=== PATIENT | male | born 1985 | race Caucasian/White ===

== ENCOUNTER 2016-03-15 15:08 | Emergency (ER) | payer BC ==
[2016-03-15 15:52] VITALS: BP 130/81
--- NOTE | 2016-03-15 16:14 | UC ---
Back Pain HPI - HPI Summary HPI Summary: Patient slipped and fell on his steps last week Monday and hit his lower cervical spine on a step. Patient states that his pain fully resolved two days ago, but was re-aggravated when he worked yesterday. Pain present only with shoulder and neck movement. Patient works for [employer] and is doing repeated heavy lifting. - History of Current Complaint Chief Complaint: UCUpperExtremity Stated Complaint: NECK AND SHOULDER PAIN Time Seen by Provider: 03/15/16 16:09 Hx Obtained From: Patient Onset/Duration: Sudden Onset, Worse Since - Working yesterday Timing: Intermittent - With neck and shoulder movements Severity Initially: Moderate Severity Currently: Moderate Back Pain: Radiates To - Bilateral scapula Character: Dull, Aching Aggravating: Movement, Lifting Alleviating: Rest Associated Signs And Symptoms: Positive: Negative - Risk Factors AAA Risk Factors: Negative TAD Risk Factors: Negative Cauda Equina Risk Factors: Negative Epidural Abscess Risk Factors: Negative - Allergies/Home Medications Allergies/Adverse Reactions: Allergies Allergy/AdvReac Type Severity Reaction Status Date / Time Penicillins Allergy Hives Uncoded 01/20/15 11:57 Home Medications: Home Medications Ibuprofen [Advil] 400 mg PO 03/15/16 [History] PMH/Surg Hx/FS Hx/Imm Hx Previously Healthy: Yes Endocrine History Of: Denies: Diabetes, Thyroid Disease, Hyperthyroidism, Hypothyroidism, Dyslipidemia Cardiovascular History Of: Denies: Cardiac Disorders, Hypertension, Pacemaker/ICD, Myocardial Infarction , Congestive Heart Failure, Atrial Fibrillation, Deep Vein Thrombosis, Bleeding Disorders Respiratory History Of: Reports: Asthma - as a child GI/ History Of: Denies: Gastroesophageal Reflux, Ulcer, Gastrointestinal Bleed, Gall Bladder Disease, Kidney Stones, Diverticulitis, Renal Disease, Urosepsis Neurological History Of: Denies: Seizures, Migraine Psychological History Of: Denies: Anxiety, Depression Cancer History Of: Denies: Lung Cancer - Surgical History Surgical History: None - Family History Known Family History: Positive: Unknown - Social History Occupation: Employed Full-time - [employer]: With Family Alcohol Use: Daily Alcohol Amount: a couple beers Substance Use Type: None, Marijuana Substance Use Comment - Amount & Last Used: on occasion Smoking Status (MU): Heavy Every Day Tobacco Smoker Type: Cigarettes Have You Smoked in the Last Year: Yes When Did the Patient Quit Smoking/Using Tobacco: Sep 2014 Review of Systems Constitutional: Negative Skin: Negative Eyes: Negative ENT: Negative Respiratory: Negative Cardiovascular: Negative Gastrointestinal: Negative Genitourinary: Negative Musculoskeletal: Other: - Neck and shoulder pain Neurological: Negative Psychological: Negative All Other Systems Reviewed And Are Negative: Yes Physical Exam Triage Information Reviewed: Yes Appearance: Well-Appearing, No Pain Distress, Well-Nourished Vital Signs: Initial Vital Signs Temp 99.0 F 03/15/16 15:47 Pulse 72 03/15/16 15:47 Resp 18 03/15/16 15:47 BP 130/81 03/15/16 15:47 Pulse Ox 99 03/15/16 15:47 Vital Signs Reviewed: Yes Eye Exam: Normal Eyes: Positive: Conjunctiva Clear ENT Exam: Normal Dental Exam: Normal Neck: Positive: Supple, Nontender, No Lymphadenopathy Respiratory: Positive: Chest non-tender, Lungs clear, Normal breath sounds Cardiovascular: Positive: RRR, No Murmur, Pulses Normal Abdomen Description: Positive: Nontender, No Organomegaly, Soft Bowel Sounds: Positive: Present Musculoskeletal: Positive: Strength Intact, ROM Intact - ROM intact but movement aggravate plain Neurological Exam: Normal Neurological: Positive: Alert Psychological Exam: Normal Psychological: Positive: Normal Response To Family Skin Exam: Normal Back Pain Course/Dx - Differential Dx/Diagnosis Provider Diagnoses: Acute cervical strain Discharge - Discharge Plan Condition: Stable Disposition: HOME Patient Education Materials: Cervical Strain (ED) Referrals: No Primary Care Phys,NOPCP [Primary Care Provider] - If Needed Additional Instructions: ANTI-INFLAMMATORY MEDICATION: You have received a prescription for an antiinflammatory agent. This is an excellent drug for pain control. In addition, it has potent antiinflammatory effects which are beneficial, especially in the treatment of injuries, arthritis , or tendonitis. It's best to take this medicine with food. Persons with ulcer disease or allergy to aspirin should notify their physician of this before taking this drug. Take the medication exactly as prescribed. Don't take additional doses unless instructed to do so by your doctor. If you develop wheezing, shortness of breath, hives, faintness, stomach pain, vomiting, or dark black stools, return for re-evaluation at once. MUSCLE RELAXERS: Muscle relaxing medications are usually prescribed for acute muscle spasm or injury to the neck and back. They are often combined with antiinflammatory pain medication for increased relief. You may stop the muscle relaxer when the pain and stiffness have improved. Start the medication again if spasms recur. Muscle relaxers may cause drowsiness, especially with the first dose. Do not operate machinery or drive while under the effects of the medication. Do not combine the medication with alcohol. TRY TO USE THIS PRIMARILY AT BEDTIME DUE TO SEDATING EFFECTS. YOU CAN USE ONE PILL (A HALF-DOSE) OR TWO (A FULL DOSE) IN ORDER TO BALANCE THE BENEFITS AND SIDE-EFFECTS. (1) Rest on a firm surface. Avoid lying on your stomach. (2) Ice pack the painful area. After a few days, gentle heat may be used intermittently to relax the area, or ice packs can be continued. (3) Medication may be needed -- muscle relaxers and antiinflammatory medicines are commonly used. (4) As the back improves, exercises are prescribed to strengthen the back and abdominal muscles. Your doctor will advise you on the proper care for your back at each stage in your recovery. You may be better in a few days -- or healing may take several weeks.
--- NOTE | 2016-03-15 17:02 | RAD ---
INDICATION: Neck pain COMPARISON: None TECHNIQUE: Routine five-view imaging was performed FINDINGS: Bones: There are no acute bony findings. There are no significant osteoarthritic findings. Craniocervical junction: The odontoid and atlantodental interval are normal. Alignment: Cervical spine straightening Disc spaces: The disc spaces are well-maintained Soft tissues: The prevertebral soft tissues are normal. IMPRESSION: CERVICAL SPINE STRAIGHTENING, OTHERWISE NEGATIVE.
== END 2016-03-15 17:20 | disposition home or self-care (01) ==
LOC: UCEAST 15:08
DX: S16.1XXS Strain of muscle, fascia and tendon at neck level, sequela (principal); X50.0XXS Overexertion from strenuous movement or load, sequela; F12.90 Cannabis use, unspecified, uncomplicated; Z87.891 Personal history of nicotine dependence
CPT/HCPCS: 72050; 99212; G0463

== ENCOUNTER 2018-08-23 08:10 | Emergency (ER) | payer BC ==
[2018-08-23 08:18] VITALS: BP 141/94
--- NOTE | 2018-08-23 08:33 | UC ---
Lower Extremity/Ankle HPI - HPI Summary HPI Summary: Pain since work yesterday, Does not recall event. PAin distal med MTP Spends most of his time outside. Walks a lot on lumpy bumpy terrain. Wears work boots most of the time. No other areas of pain or arthralgia. Has not seen a primary doctor in many years. No fever / chills. No rash. No sob / cp No GI issues. - History of Current Complaint Chief Complaint: UCLowerExtremity Stated Complaint: FOOT PAIN Time Seen by Provider: 08/23/18 08:32 Hx Obtained From: Patient Pain Intensity: 4 - Allergies/Home Medications Allergies/Adverse Reactions: Allergies Allergy/AdvReac Type Severity Reaction Status Date / Time Penicillins Allergy Hives Uncoded 08/23/18 08:18 PMH/Surg Hx/FS Hx/Imm Hx Previously Healthy: Yes - Surgical History Surgical History: None - Family History Known Family History: Positive: None - Social History Alcohol Use: Daily Alcohol Amount: a couple beers Substance Use Type: None Substance Use Comment - Amount & Last Used: on occasion Smoking Status (MU): Heavy Every Day Tobacco Smoker Type: Cigarettes Have You Smoked in the Last Year: Yes When Did the Patient Quit Smoking/Using Tobacco: Sep 2014 Review of Systems All Other Systems Reviewed And Are Negative: Yes Constitutional: Positive: Negative Skin: Positive: Negative Eyes: Positive: Negative ENT: Positive: Negative Respiratory: Positive: Negative Cardiovascular: Positive: Negative Gastrointestinal: Positive: Negative Genitourinary: Positive: Negative Motor: Positive: Other - see Musculoskeletal: Positive: Arthralgia Neurological: Positive: Negative Psychological: Positive: Negative Is Patient Immunocompromised?: No Physical Exam Triage Information Reviewed: Yes Appearance: Well-Appearing, Well-Nourished Vital Signs: Initial Vital Signs Temp 98.4 F 08/23/18 08:14 Pulse 78 08/23/18 08:14 Resp 18 08/23/18 08:14 BP 141/94 08/23/18 08:14 Pulse Ox 100 08/23/18 08:14 Vital Signs Reviewed: Yes Eye Exam: Normal ENT Exam: Normal Neck exam: Normal Neck: Positive: Supple Respiratory Exam: Normal Cardiovascular Exam: Normal Abdominal Exam: Normal Musculoskeletal Exam: Other - Tender R distal mtp, carina medial aspect. Not red, mild swollen. No other point tenderness. Cap refill is good. + distal sens LT present. Able to walk and move foot in all directions. Neurological Exam: Normal Psychological Exam: Normal Skin Exam: Normal Lower Extremity Course/Dx - Course Course Of Treatment: Xray Left foot nad. Reviewed report with pt. Declines crutches. Declines work note. Suspect gout type arthralgia, but c/n r/o other, based on exam alone. Will rx gout, check chemistries, encourage f/u pcp d(does not have a pcp). Outside most of the time, will check lyme titer. Questions as posed answered to the best of my ability. - Differential Dx/Diagnosis Provider Diagnosis: Arthralgia Discharge - Sign-Out/Discharge Documenting (check all that apply): Patient Departure All imaging exams completed and their final reports reviewed: Yes - Discharge Plan Condition: Stable Disposition: HOME Prescriptions: Colchicine* [Colcrys*] 0.6 mg PO DAILY PRN #6 tab PRN Reason: Pain Indomethacin CAP* [Indocin CAP*] 50 mg PO TID PRN #30 cap PRN Reason: Pain Patient Education Materials: Gout (ED), Arthralgia (ED) Referrals: No Primary Care Phys,NOPCP [Primary Care Provider] - Jose Lopez MD [Medical Doctor] - [facility] [place] [facility] [Outside] Additional Instructions: Follow up with a motion picture director, at your convenience for footwear / callous evaluation. Follow up with orthopedic surgeon in the next 1-2 weeks. Sooner if no better or worse. Follow up with a primary care physician, as soon as you are able. Blood work drawn today. Call in approx 2 days for results if you have not heard from us in the meantime. xray foot ok. CAM boot for comfort. Minimize pressure / walking until symptoms improved. Elevate as possible. Firm work shoe recommended, if possible - and if not painful. symptoms - possibly gout. Your blood pressure was high today,please have this rechecked in the next month. - Billing Disposition and Condition Condition: STABLE Disposition: Home
[2018-08-23 14:34] LABS: ABS Eosinophils 0.3 10^3/ul (0-0.6); ABS Lymphocytes 2.1 10^3/ul (1.0-4.8); ABS Monocytes 0.8 10^3/ul (0-0.8); ABS Neutrophils 6.6 10^3/ul (1.5-7.7); Eosinophil % 3.5 %; Hematocrit 48 % (42-52); Hemoglobin 17.2 g/dL (14.0-18.0); Lymphocyte % 20.9 %; Mean Corpuscular HGB Conc 35 g/dL (31-36); Mean Corpuscular Hemoglobin 33 pg (27-31); Mean Corpuscular Volume 93 fL (80-94); Mean Platelet Volume 8.9 fL (7.4-10.4); Nucleated Red Blood Cells % 0.1; Platelet Count 267 10^3/uL (150-450); Red Blood Count 5.22 10^6 /uL (4.18-5.48); Red Cell Distribution Width 13 % (10-15); White Blood Count 9.9 10^3/uL (3.5-10.8)
[2018-08-23 14:40] LABS: Anion Gap 5 mmol/L (2-11); CO2 Carbon Dioxide 27 mmol/L (22-32); Chloride 105 mmol/L (101-111); Potassium 4.5 mmol/L (3.5-5.0); Sodium 137 mmol/L (135-145)
[2018-08-23 14:46] LABS: BUN/Creatinine Ratio 12.6 (8-20); Blood Urea Nitrogen 12 mg/dL (6-24); C Reactive Protein < 1.00 mg/L (<8.01); EGFR African American 111.9 (>60); EGFR Non-African American 92.5 (>60); Glucose 99 mg/dL (70-100); Uric Acid 6.9 mg/dL (4.4-7.6)
[2018-08-23 15:44] LABS: Erythrocyte Sed Rate 0 mm/Hr (0-14)
== END 2018-08-23 09:39 | disposition home or self-care (01) ==
LOC: UCEAST 08:10
DX: M25.572 Pain in left ankle and joints of left foot (principal); F17.210 Nicotine dependence, cigarettes, uncomplicated; Z88.0 Allergy status to penicillin
CPT/HCPCS: 36415; 80048; 84550; 85025; 85652; 86140; 86618; 99213; G0463